=== PATIENT | female | born 1980 | race Caucasian/White ===

== ENCOUNTER 2018-09-27 11:01 | Day surgery (SDC) | payer OTHER ==
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
[2018-09-27] MEDS ORDERED: ceFAZolin 2 GM/DEXTROSE 100 ML IV ONE (11:30)
[2018-09-27] MEDS ORDERED: PHENAZOPYRIDINE HCL 200 MG TAB PO ONE (11:30)
[2018-09-27] MEDS ORDERED: ACETAMINOPHEN 500 MG TAB PO ONE (11:30)
[2018-09-27] MEDS ORDERED: GABAPENTIN 300 MG CAP PO ONE (11:30)
[2018-09-27] MEDS ORDERED: LR 1,000 ML IV ONE (11:40)
[2018-09-27] MEDS ORDERED: BUPIVACAINE/EPI 0.5% 30 ML SDV ONE (12:07)
--- NOTE | 2018-09-27 13:02 | PDHPUP ---
History & Physical Update H&P update statement: This history and physical update is based on an assessment of the patient which was completed after admission or registration (within 24 hours), but prior to the surgery/procedure. H&P update: H&P reviewed & patient examined, no change in patient's condition since H&P completed
[2018-09-27] MEDS ORDERED: SCOPOLAMINE HYDROBROMIDE 1 MG/3 DAYS PATCH TD ONE (13:12)
[2018-09-27] MEDS ORDERED: MIDAZOLAM 2 MG/2 ML VIAL IVP ONE (13:12)
[2018-09-27] MEDS ORDERED: fentaNYL 100 MCG/2 ML INJ ONE ×3 (13:21→16:20)
[2018-09-27] MEDS ORDERED: HYDROmorphONE/DILAUDID 2 MG/ML INJ ONE (13:21)
[2018-09-27] MEDS ORDERED: PROPOFOL/EMULSION 500 MG/50 ML BOTTLE IV ONE ×3 (13:22→14:32)
[2018-09-27] MEDS ORDERED: PROPOFOL 200 MG/20 ML VIAL ONE (13:22)
--- NOTE | 2018-09-27 13:23 | PDANEPAE ---
ANE Past Medical History - Cardiovascular History Hx Hypertension: No Hx Arrhythmias: No Hx Chest Pain: No Hx Coronary Artery / Peripheral Vascular Disease: No Hx CHF / Valvular Disease: No Hx Palpitations: No - Pulmonary History Hx COPD: No Hx Asthma/Reactive Airway Disease: No Hx Recent Upper Respiratory Infection: No Hx Oxygen in Use at Home: No Hx Sleep Apnea: No Sleep Apnea Screening Result - Last Documented: Negative - Neurologic History Hx Cerebrovascular Accident: No Hx Seizures: No Hx Dementia: No - Endocrine History Hx Diabetes: No - Renal History Hx Renal Disorders: No - Liver History Hx Hepatic Disorders: No - Neurological & Psychiatric Hx Hx Neurological and Psychiatric Disorders: No - Cancer History Hx Cancer: No - Congenital Disorder History Hx Congenital Disorders: No - GI History Hx Gastrointestinal Disorders: No - Other Health History Other Health History: none - Chronic Pain History Chronic Pain: No - Surgical History Prior Surgeries: fibroidoma removed from left breast ANE Review of Systems Review of Systems: - Exercise capacity METS (RN): 5 METS ANE Patient History - Allergies Allergies/Adverse Reactions: No Known Allergies Allergy (Verified 09/19/18 14:33) - Home Medications Home Medications: Multivitamin 09/19/18 [Last Taken 09/19/18] Toradol 10mg tab 09/19/18 [Last Taken 09/19/18] - NPO status NPO Since - Liquids (Date): 09/27/18 NPO Since - Liquids (Time): 10:30 NPO Since - Solids (Date): 09/26/18 NPO Since - Solids (Time): 21:00 - Smoking Hx Smoking Status: Never smoked - Family Anes Hx Family Hx Anesthesia Complications: none ANE Labs/Vital Signs - Vital Signs Vital Signs: reviewed preoperatively; see RN documention for details Blood Pressure: 106/69 Heart Rate: 67 Respiratory Rate: 12 O2 Sat (%): 97 Height: 170.18 cm Weight: 65.771 kg ANE Physical Exam - Airway Neck exam: FROM Mallampati Score: Class 1 Mouth exam: normal dental/mouth exam - Pulmonary Pulmonary: clear to auscultation - Cardiovascular Cardiovascular: regular rate and rhythym - ASA Status ASA Status: II ANE Anesthesia Plan Anesthesia Plan: general endotracheal anesthesia Total IV Anesthesia: Yes
[2018-09-27] MEDS ORDERED: METOCLOPRAMIDE 10 MG/2 ML VIAL ONE (13:28)
[2018-09-27] MEDS ORDERED: ROCURONIUM 50 MG/5 ML VIAL ONE (13:29)
[2018-09-27] MEDS ORDERED: DEXAMETHASONE 4 MG/ML VIAL ONE (13:29)
[2018-09-27] MEDS ORDERED: ePHEDrine SULFATE 25 MG/5 ML SYR ONE (13:35)
[2018-09-27] MEDS ORDERED: VASOPRESSIN 20 UNIT/ML VIAL ONE (13:53)
[2018-09-27] MEDS ORDERED: KETOROLAC 30 MG/1 ML SDV ONE (14:37)
[2018-09-27] MEDS ORDERED: ONDANSETRON 4 MG/2 ML VIAL ONE (14:37)
[2018-09-27] MEDS ORDERED: PROMETHAZINE HCL 25 MG/ML INJ IVP PRN (14:52)
[2018-09-27] MEDS ORDERED: HYDROCODONE/APAP 5/325 TAB PO PRN (14:52)
[2018-09-27] MEDS ORDERED: DEXAMETHASONE 4 MG/ML VIAL IVP PRN (14:52)
[2018-09-27] MEDS ORDERED: oxyCODONE IR 5 MG TAB PO PRN (14:52)
[2018-09-27] MEDS ORDERED: DIAZEPAM 5 MG/ML 1 ML SYR IVP PRN (14:52)
[2018-09-27] MEDS ORDERED: HYDROmorphONE/DILAUDID 2 MG/ML INJ IVP PRN (14:52)
[2018-09-27] MEDS ORDERED: ALBUTEROL 3 ML DEYVIAL IH PRN (14:52)
[2018-09-27] MEDS ORDERED: NALOXONE HCL 0.4 MG/ML INJ IVP PRN (14:52)
[2018-09-27] MEDS ORDERED: MEPERIDINE 25 MG/0.5 ML AMP IVP PRN (14:52)
[2018-09-27] MEDS ORDERED: METOCLOPRAMIDE 10 MG/2 ML VIAL IVP PRN (14:52)
[2018-09-27] MEDS ORDERED: ONDANSETRON 4 MG/2 ML VIAL IVP PRN (14:52)
[2018-09-27] MEDS ORDERED: LR 500 ML IV PRN (14:52)
--- NOTE | 2018-09-27 15:13 | POSTOPPROG ---
Post Op Note Date of Operation: 09/27/18 Surgeon: Harry Beal Airline Pilot/First Officer: Rula Orta Anesthesiologist: Tara Anesthesia: GET(General Endotracheal) Pre-op Diagnosis: Endometriosis, fibroids Post-op Diagnosis: same Procedure: Robotic excision of endo and fibroids Inf/Abcess present in the surg proc area at time of surgery?: No EBL: Minimal Complications: None
[2018-09-27] MEDS ORDERED: SUGAMMADEX SODIUM 200 MG/2 ML VIAL IVP ONE (15:20)
[2018-09-27] MEDS: fentaNYL 100 MCG/2 ML INJ IVP PRN ×3 (15:56→16:21)
--- NOTE | 2018-09-27 16:23 | POSTANESTH ---
Post Anesthetic Evaluation Cardiovascular Status: Normal, Stable Respiratory Status: Normal, Stable Level of Consciousness/Mental Status: Can Participate in Eval Pain Control: Adequate, Prn Tx Ordered Nausea/Vomiting Control: Adequate, Prn Tx Ordered Complications Possibly Related to Anesthesia: None Noted
[2018-09-27 17:11] VITALS: BP 117/72
--- NOTE | 2018-09-27 17:27 | GOP ---
[f rep st] OPERATIVE REPORT DATE OF OPERATION: 09/27/2018 SURGEON: Harry Beal MD HOSPITAL NURSE: LIONEL Sandoval. ANESTHESIA: General. PREOPERATIVE DIAGNOSIS: 1. Dysmenorrhea. 2. Dyspareunia. 3. Menorrhagia. 4. Midcycle pain. 5. Intramural fibroids. POSTOPERATIVE DIAGNOSIS: 1. Dysmenorrhea. 2. Dyspareunia. 3. Menorrhagia. 4. Midcycle pain. 5. Intramural fibroids. PROCEDURE PERFORMED: 1. Robotic excision of endometriosis in the anterior and posterior cul-de-sac, bilateral pelvic side foster. 2. Bilateral ureterolysis. 3. Excision of 7 intramural fibroids. 4. Bilateral ovariopexy. 5. Excision of rectal lesion. FINDINGS: The upper abdomen was unremarkable. There was no endometriosis on either diaphragm, liver , stomach, gallbladder, or upper abdominal bowel. Within the pelvis was a mildly enlarged uterus wit h various sized, mostly intramural, with several small subserous fibroids. She had endometriosis in the anterior and posterior cul-de-sacs, the distal rectum, and bilateral pelvic sidewalls. There was no endometriosis on the serosal surface of the uterus nor the tubes nor ovaries. SPECIMENS: 1. Pelvic peritoneum with endometriosis. 2. Rectal lesion. 1. Uterine fibroids. 3. ESTIMATED BLOOD LOSS: Scant. DESCRIPTION OF PROCEDURE: The patient was taken to the operating room where she was identified. Gen eral anesthesia was administered and found to be adequate. She was placed in the lithotomy position and prepared and draped in normal sterile fashion. A Ace catheter was placed in her bladder. A Hu lka tenaculum was placed in the uterus for manipulation. An 8 mm infraumbilical incision was made with a scalpel. The Veress needle with the CO2 gas flowing was advanced into the peritoneal cavity. The abdomen was then insufflated with carbon dioxide gas. The 8 mm trocar, followed by the laparoscope, were then inserted. Two lateral ports were placed on t he right, one on the left under direct visualization. She then was placed in Trendelenburg position, and the da Kirti robot docked on the left side. The instruments were brought into the abdominal cav ity under direct visualization. The anterior cul-de-sac peritoneum with endometriosis was completely excised. A bilateral ovariopexy was performed by attaching each ovary to the ipsilateral round ligaments near the internal inguinal ring with 3-0 Vicryl Rapide suture. The lesions on the distal rectum were excised. They extended in to the muscularis. The entire posterior cul-de-sac peritoneum from the distal rectum up to the cervi x bilaterally to both uterosacral ligaments was then completely excised. The patient required a bila teral ureterolysis, given the endometriosis overlying both ureters. The peritoneum at the pelvic wilfred ms was incised. The ureters were gently dissected free and lateralized off the overlying peritoneum and endometriosis from the pelvic brim down to the uterine arteries. Once this was accomplished, the entire pelvic sidewall peritoneum bilaterally was completely excised. The larger fibroids were inje cted with a dilute vasopressin solution at the junction with the muscularis. The overlying serosa wa s incised. The fibroids were gently dissected free. None appeared to completely enter the endometri al cavity. The uterus was closed in layers with a running suture of 2-0 V-Loc 90 suture. All incisions were hem ostatic. A posterior colpotomy incision was made with the scissors. The fibroids were removed throu gh the vagina. The colpotomy was closed with a running 2-0 Vicryl suture. The pelvis was irrigated with sterile saline, and hemostasis was present. The robot was then undocked. The skin was closed w ith 4-0 Monocryl and surgical adhesive. Anesthesia was reversed. The patient taken the PACU awake, in stable condition. COMPLICATIONS: None. DISPOSITION: Patient stable to PACU. /[id number]/MODL
== END 2018-09-27 17:40 | disposition home or self-care (01) ==
LOC: FSGY 11:01
PROVIDERS: ATTEND Obstetrics & Gynecology
PROC: 0US24ZZ Reposition Bilateral Ovaries, Percutaneous Endoscopic Approach (ICD-10-PCS; principal; 2018-09-27 13:00)
PROC: 0UBF4ZZ Excision of Cul-de-sac, Percutaneous Endoscopic Approach (ICD-10-PCS; principal; 2018-09-27 13:00)
PROC: 8E0W4CZ Robotic Assisted Procedure of Trunk Region, Percutaneous Endoscopic Approach (ICD-10-PCS; principal; 2018-09-27 13:00)
PROC: 0UB98ZX Excision of Uterus, Via Natural or Artificial Opening Endoscopic, Diagnostic (ICD-10-PCS; principal; 2018-09-27 13:00)
PROC: 0DBP4ZZ Excision of Rectum, Percutaneous Endoscopic Approach (ICD-10-PCS; principal; 2018-09-27 13:00)
DX: N94.6 Dysmenorrhea, unspecified (principal); N80.3 Endometriosis of pelvic peritoneum; D25.1 Intramural leiomyoma of uterus; N94.10 Unspecified dyspareunia; N92.0 Excessive and frequent menstruation with regular cycle; F32.9 Major depressive disorder, single episode, unspecified
CPT/HCPCS: 58545; 58662; 58679; C1765; J0690; J1100; J1170; J1885; J2250; J2405; J2704; J2765; J3010